=== PATIENT | male | born 1990 | race African-American/Black ===

== ENCOUNTER 2017-02-12 14:18 | Emergency (ER) | payer OTHER ==
[~2017-02-12] VITALS: Ht 172.7 cm; Wt 61.2 kg
[2017-02-12 14:20] VITALS: BP 122/94
[2017-02-12] MEDS ORDERED: NORCO 5-325 TA1 EACH PO (14:40)
== END 2017-02-12 14:41 | disposition home or self-care (01) ==
LOC: ER 14:18
DX: G89.29 Other chronic pain (principal); M79.605 Pain in left leg; F17.210 Nicotine dependence, cigarettes, uncomplicated; Z98.890 Other specified postprocedural states

== ENCOUNTER 2018-08-17 17:13 | Emergency (ER) | payer OTHER ==
[~2018-08-17] VITALS: Ht 170.2 cm; Wt 63.5 kg
[~2018-08-17 17:13] MED LIST: NORCO 5-325 TA1 EACH PO
[2018-08-17] MEDS ORDERED: BACITRAYCIN PLU28 GM TOP (18:16)
[2018-08-17 18:20] VITALS: BP 118/79
== END 2018-08-17 18:30 | disposition home or self-care (01) ==
LOC: ER 17:13
DX: S00.81XA Abrasion of other part of head, initial encounter (principal); X58.XXXA Exposure to other specified factors, initial encounter; Y93.89 Activity, other specified; Y92.89 Other specified places as the place of occurrence of the external cause; Y99.8 Other external cause status